=== PATIENT | male | born 1950 | race Caucasian/White ===

== ENCOUNTER 2016-11-27 01:57 | Emergency (ER) | payer MEDICARE ==
[~2016-11-27] VITALS: Ht 180.3 cm; Wt 90.0 kg
[~2016-11-27 01:57] MED LIST: DEXT15CA; TOPI200T8; TRAZ300T2; VENL100T19
[2016-11-27 02:00] VITALS: Ht 180.3 cm; Wt 90.0 kg
[2016-11-27] MEDS ORDERED: TRAZ300T15 PO (02:17)
[2016-11-27 02:45] VITALS: BP 128/89; PULSE 97
--- NOTE | 2016-11-27 04:07 | ERD ---
ER Documentation Chief Complaint Date/Time DATE: 11/27/16 TIME: 04:04 Chief Complaint Out of meds for 1 month HPI This 56-year-old male called an ambulance because he wanted refill on his trazodone it is not been taking for a month. States he takes 300 mg of trazodone nightly he has trouble sleeping without it. He denies any suicidal homicidal ideations. States that he would like to stay the night in the hospital but denies any new acute pain. He denies chest pain shortness of breath fevers, chills nausea vomiting. Denies any recent trauma. States that it is cold outside. ROS All systems reviewed and are negative except as per history of present illness. Medications Home Meds Active Scripts Trazodone Hcl* (Trazodone Hcl*) 300 Mg Tablet, 300 MG PO QHS, #10 TAB Prov:ARIA FRANZ DO 11/27/16 Reported Medications Trazodone Hcl* (Desyrel*) 300 Mg Tablet 04/07/10 D-Amphetamine Sulfate (Dexedrine) 15 Mg Capsule.sa 04/07/10 Venlafaxine Hcl* (Effexor*) 100 Mg Tablet 04/07/10 Topiramate (Topamax) 200 Mg Tablet 04/07/10 Allergies Allergies: Coded Allergies: Sulfa (Sulfonamides) (Verified Allergy, Mild, 04/07/10) Uncoded Allergies: [id number] (SULFA (SULFONAMIDE ANTIBIOTICS)) (Allergy, Mild, 04/07/10) PMhx/Soc History of Surgery: Yes (KIDNEY STONE 1990) Anesthesia Reaction: No Hx Neurological Disorder: No Hx Respiratory Disorders: No Hx Cardiac Disorders: No Hx Psychiatric Problems: Yes (DEPRESSION) Hx Miscellaneous Medical Probl: Yes (ADHD) Hx Alcohol Use: No Hx Substance Use: No Hx Tobacco Use: No Smoking Status: Never smoker Physical Exam Vitals Vital Signs Date Time Temp Pulse Resp B/P Pulse Ox O2 Delivery O2 Flow Rate FiO2 11/27/16 02:00 97.7 127 16 131/91 97 Physical Exam Const: [] No distress Head: Atraumatic Eyes: Normal Conjunctiva ENT: Normal External Ears, Nose and Mouth. Neck: Full range of motion..~ No meningismus. Resp: Clear to auscultation bilaterally Cardio: Regular mild tachycardia, no murmurs Abd: Soft, non tender, non distended. Normal bowel sounds Skin: No petechiae or rashes Back: No midline or flank tenderness Ext: No cyanosis, or edema Neur: Awake and alert and oriented 3, cranial nerves II through XII intact, no cerebellar deficits, normal gait Psych: Normal Mood and Affect Procedures/MDM Patient presents for medication refill. I agreed to fill his prescription for 10 days of trazodone. Patient initially stated he was stable in the hospital but does not have a medical reason for this. He was taking good by mouth in the emergency room. He has no other complaints at this time. I'm discharging him with primary care follow-up to obtain further refills. Given return precautions the emergency room if he feels any acute change or stress to feel extreme depression thoughts of harming himself. Departure Diagnosis: Primary Impression: Encounter for medication refill Condition: Stable Patient Instructions: Taking Medicine Safely Referrals: COMMUNITY CLINICS YOU HAVE RECEIVED A MEDICAL SCREENING EXAM AND THE RESULTS INDICATE THAT YOU DO NOT HAVE A CONDITION THAT REQUIRES URGENT TREATMENT IN THE EMERGENCY DEPARTMENT. FURTHER EVALUATION AND TREATMENT OF YOUR CONDITION CAN WAIT UNTIL YOU ARE SEEN IN YOUR DOCTORS OFFICE WITHIN THE NEXT 1-2 DAYS. IT IS YOUR RESPONSIBILITY TO MAKE AN APPOINTMENT FOR FOLOW-UP CARE. IF YOU HAVE A PRIMARY DOCTOR --you should call your primary doctor and schedule an appointment IF YOU DO NOT HAVE A PRIMARY DOCTOR YOU CAN CALL OUR PHYSICIAN REFERRAL HOTLINE AT IF YOU CAN NOT AFFORD TO SEE A PHYSICIAN YOU CAN CHOSE FROM THE FOLLOWING FORMERLY [facility], [facility] CLINICS [facility] [address] [facility]. [facility] [address] [facility]. [facility] [address] [facility]. [facility] [address] [facility]. [facility] [address] [facility]. [facility]. [address] [facility]. [facility] YOU HAVE RECEIVED A MEDICAL SCREENING EXAM AND THE RESULTS INDICATE THAT YOU DO NOT HAVE A CONDITION THAT REQUIRES URGENT TREATMENT IN THE EMERGENCY DEPARTMENT. FURTHER EVALUATION AND TREATMENT OF YOUR CONDITION CAN WAIT UNTIL YOU ARE SEEN IN YOUR DOCTORS OFFICE WITHIN THE NEXT 1-2 DAYS. IT IS YOUR RESPONSIBILITY TO MAKE AN APPOINTMENT FOR FOLOW-UP CARE. IF YOU HAVE A PRIMARY DOCTOR --you should call your primary doctor and schedule and appointment IF YOU DO NOT HAVE A PRIMARY DOCTOR YOU CAN CALL OUR PHYSICIAN REFERRAL HOTLINE AT . IF YOU CAN NOT AFFORD TO SEE A PHYSICIAN YOU CAN CHOSE FROM THE FOLLOWING [facility] INSTITUTIONS: [facility] [address] [place] [address] [facility] [address] [place] [address] [facility] + [facility] [address] [place] [address] Additional Instructions: Call your primary care doctor TOMORROW for an appointment during the next 1-2 days.See the doctor sooner or return here if your condition worsens before your appointment time. ARIA FRANZ DO Nov 27, 2016 04:07
== END 2016-11-27 06:52 | disposition home or self-care (01) ==
LOC: E/R 01:57
DX: Z76.0 Encounter for issue of repeat prescription (principal)
CPT/HCPCS: 99281

== ENCOUNTER 2016-11-30 12:33 | Emergency (ER) | payer MEDICARE, BC ==
[~2016-11-30] VITALS: Ht 167.6 cm; Wt 65.0 kg
[~2016-11-30 12:33] MED LIST changes: +TRAZ300T15 PO
[2016-11-30 12:50] VITALS: Ht 167.6 cm; Wt 65.0 kg
[2016-11-30 13:33] LABS: BASOPHILS % 0.6 % (0.0-2.0); EOSINOPHILS % 0.2 % (0.0-7.0); HEMATOCRIT 55.2 % (42.0-52.0); LYMPHOCYTES # 1.1 10^3/ul (0.8-2.9); LYMPHOCYTES % 16.5 % (15.0-51.0); MEAN CORPUSCULAR HEMOGLOBIN 33.1 pg (29.0-33.0); MEAN CORPUSCULAR HGB CONC 34.4 g/dl (32.0-37.0); MEAN CORPUSCULAR VOLUME 96.3 fl (82.0-101.0); MEAN PLATELET VOLUME 7.7 fl (7.4-10.4); MONOCYTE # 0.8 10^3/ul (0.3-0.9); MONOCYTES % 11.4 % (0.0-11.0); NEUTROPHIL # 4.7 10^3/ul (1.6-7.5); NEUTROPHILS % 71.3 % (39.0-77.0); PLATELET COUNT 193 10^3/UL (140-440); RED BLOOD COUNT 5.73 10^6/ul (4.70-6.10); RED CELL DISTRIBUTION WIDTH 13.9 % (11.5-14.5); UNCORRECTED WBC 6.7 10^3/ul (4.8-10.8); WHITE BLOOD COUNT 6.7 10^3/ul (4.8-10.8)
[2016-11-30 13:34] LABS: CONDITION 1
[2016-11-30 13:35] LABS: ALBUMIN 4.1 g/dl (3.3-4.9); CHLORIDE 93 mmol/L (97-110); SODIUM 139 mmol/L (135-144)
[2016-11-30 13:37] LABS: CREATININE 0.95 mg/dl (0.61-1.24)
[2016-11-30 13:38] LABS: ALANINE AMINOTRANSFERASE 23 IU/L (13-69); ALBUMIN/GLOBULIN RATIO 1.51; ALKALINE PHOSPHATASE 77 IU/L (42-121); ANION GAP 26 (8-16); ASPARTATE AMINO TRANSFERASE 25 IU/L (15-46); BLOOD UREA NITROGEN 21 mg/dl (7-20); CALCIUM 9.2 mg/dl (8.4-10.2); CARBON DIOXIDE 23 mmol/L (21-31); GLUCOSE 106 mg/dl (70-220); TOTAL PROTEIN 6.8 g/dl (6.1-8.1)
[2016-11-30 13:42] LABS: ACETAMINOPHEN < 10.0 ug/ml (10.0-30.0); ETHANOL < 10.0 mg/dl; SALICYLATE < 1.0 mg/dl (5.0-30.0)
[2016-11-30 13:43] LABS: POTASSIUM 2.8 mmol/L (3.5-5.1)
[2016-11-30] MEDS ORDERED: POTASSIUM CHLORIDE 40 MEQ in SOD CHLORIDE 0.45% 1,000 ML IV ONE (14:05)
[2016-11-30 15:08] LABS: ADD UMIC YES; URINE BILIRUBIN (Dip) 2+ (NEGATIVE); URINE BLOOD (Dip) 3+ (NEGATIVE); URINE COLOR DK. YELLOW (YELLOW); URINE GLUCOSE (Dip) NEGATIVE (NEGATIVE); URINE KETONES (Dip) 3+ (NEGATIVE); URINE LEUKOCYTE ESTERASE (Dip) NEGATIVE (NEGATIVE); URINE NITRITE (Dip) NEGATIVE (NEGATIVE); URINE TOTAL PROTEIN (Dip) 1+ (NEGATIVE); URINE UROBILINOGEN (Dip) 2.0 E.U./dL (0.1-1.0)
[2016-11-30 15:19] LABS: ICTOTEST NEGATIVE (NEGATIVE)
[2016-11-30 15:20] LABS: MUCUS,URINE MODERATE
--- NOTE | 2016-11-30 15:22 | ERD ---
ER Documentation Chief Complaint Date/Time DATE: 11/30/16 TIME: 15:21 Chief Complaint BIB RA 39 F0R EVAL OF SI. PT PLANS ON HANGING HIMSELF WITH BELT. HX OF DEPR HPI 66-year-old male with a history of depression presenting with suicidal ideations. He has a plan to hang himself. He states he is severely sad. He used to be on Effexor and trazodone, but he ran out of his medication several weeks ago. He was here several days ago for a refill for his medication and was given 10 days of trazodone. He states he is not feeling better and does not want to live anymore. He denies any homicidal ideations. He denies taking any drugs or any other substances today. He denies any alcohol use. ROS All systems reviewed and are negative except as per history of present illness. Medications Home Meds Discontinued Reported Medications Trazodone Hcl* (Desyrel*) 300 Mg Tablet 04/07/10 D-Amphetamine Sulfate (Dexedrine) 15 Mg Capsule.sa 04/07/10 Venlafaxine Hcl* (Effexor*) 100 Mg Tablet 04/07/10 Topiramate (Topamax) 200 Mg Tablet 04/07/10 Discontinued Scripts Trazodone Hcl* (Trazodone Hcl*) 300 Mg Tablet, 300 MG PO QHS, #10 TAB Prov:ARIA FRANZ DO 11/27/16 Allergies Allergies: Coded Allergies: Sulfa (Sulfonamide Antibiotics) (Verified Allergy, Mild, 11/30/16) Uncoded Allergies: [id number] (SULFA (SULFONAMIDE ANTIBIOTICS)) (Allergy, Mild, 04/07/10) PMhx/Soc History of Surgery: Yes (KIDNEY STONE 1990) Anesthesia Reaction: No Hx Neurological Disorder: No Hx Respiratory Disorders: No Hx Cardiac Disorders: No Hx Psychiatric Problems: Yes (DEPRESSION) Hx Miscellaneous Medical Probl: Yes (ADHD) Hx Alcohol Use: No Hx Substance Use: No Hx Tobacco Use: No Smoking Status: Never smoker FmHx Family History: No diabetes Physical Exam Vitals Vital Signs Date Time Temp Pulse Resp B/P Pulse Ox O2 Delivery O2 Flow Rate FiO2 11/30/16 18:30 98.6 72 16 115/84 97 Room Air 11/30/16 16:30 98.6 95 16 138/90 Room Air 11/30/16 12:50 98.9 106 22 154/84 100 Physical Exam Const: Disheveled, unkempt, no distress, thin Head: Atraumatic Eyes: Normal Conjunctiva ENT: Normal External Ears, Nose and Mouth. Neck: Full range of motion. No meningismus. Resp: Clear to auscultation bilaterally Cardio: Regular rate and rhythm, no murmurs Abd: Soft, non tender, non distended. Normal bowel sounds Skin: No petechiae or rashes Back: No midline or flank tenderness Ext: No cyanosis, or edema Neur: Awake and alert, strength and sensations intact in all 4 extremities Psych: Appearance: Disheveled M/S: Alert and oriented Mood/Affect: Depressed, labile Speech: Normal Insight: Normal Hallucinations: None SI or HI: Positive for SI Result Diagram: 11/30/16 1315 11/30/16 2100 Results 24 hrs Laboratory Tests Test 11/30/16 13:15 11/30/16 14:35 11/30/16 21:00 Acetaminophen Level < 10.0ug/ml Alanine Aminotransferase (ALT/SGPT) 23IU/L Albumin 4.1g/dl Albumin/Globulin Ratio 1.51 Alkaline Phosphatase 77IU/L Anion Gap 26 22 Aspartate Amino Transf (AST/SGOT) 25IU/L Basophils # 0.010^3/ul Basophils % 0.6% Blood Urea Nitrogen 21mg/dl 18mg/dl Calcium Level 9.2mg/dl 8.4mg/dl Carbon Dioxide Level 23mmol/L 23mmol/L Chloride Level 93mmol/L 94mmol/L Creatinine 0.95mg/dl 0.70mg/dl Direct Bilirubin 0.00mg/dl Eosinophils # 0.010^3/ul Eosinophils % 0.2% Ethyl Alcohol Level < 10.0mg/dl Globulin 2.70g/dl Glucose Level 106mg/dl 99mg/dl Hematocrit 55.2% Hemoglobin 19.0g/dl Indirect Bilirubin 1.0mg/dl Lymphocytes # 1.110^3/ul Lymphocytes % 16.5% Mean Corpuscular Hemoglobin 33.1pg Mean Corpuscular Hemoglobin Concent 34.4g/dl Mean Corpuscular Volume 96.3fl Mean Platelet Volume 7.7fl Monocytes # 0.810^3/ul Monocytes % 11.4% Neutrophils # 4.710^3/ul Neutrophils % 71.3% Nucleated Red Blood Cells # 0.010^3/ul Nucleated Red Blood Cells % 0.0/100WBC Platelet Count 45094^3/UL Potassium Level 2.8mmol/L 3.5mmol/L Red Blood Count 5.7310^6/ul Red Cell Distribution Width 13.9% Salicylates Level < 1.0mg/dl Sodium Level 139mmol/L 135mmol/L Total Bilirubin 1.0mg/dl Total Protein 6.8g/dl White Blood Count 6.710^3/ul Urine Amphetamines Screen Negative Urine Barbiturates Negative Urine Benzodiazepines Screen Negative Urine Bilirubin 2+ Urine Cannabinoids Negative Urine Clarity CLEAR Urine Cocaine Screen Negative Urine Color DK. YELLOW Urine Glucose NEGATIVE% Urine Hemoglobin 3+ Urine Ictotest NEGATIVE Urine Ketones 3+ Urine Leukocyte Esterase NEGATIVE Urine Microscopic RBC 5-10/HPF Urine Microscopic WBC 0-2/HPF Urine Mucus MODERATE Urine Nitrite NEGATIVE Urine Opiates Screen Negative Urine Specific [place] 1.025 Urine Total Protein 1+ Urine Urobilinogen 2.0 E.U./dL Urine pH 6.0 Magnesium Level 2.1mg/dl Current Medications Medications (Trade) Dose Ordered Sig/Irene Route PRN Reason Start Time Stop Time Status Last Admin Dose Admin Potassium Chloride/Sodium Chloride (KCl/1/2 NS) 1,020 ml @ 250 mls/hr Q4H5M ONCE IV 11/30/16 14:05 11/30/16 18:09 DC 11/30/16 15:19 Potassium Chloride (Klor-Con 20) 20 meq ONCE STAT PO 11/30/16 16:44 11/30/16 16:46 DC 11/30/16 17:11 Trazodone HCl (Desyrel) 150 mg ONCE ONCE PO 11/30/16 19:30 11/30/16 19:31 DC 11/30/16 21:18 Procedures/MDM EKG: Rate/Rhythm: Normal Sinus Rhythm QRS, ST, T-waves: No changes consistent w/ acute ischemia, QTC prolonged at 516 Impression: No evidence of ischemia or arrhythmia Patient is presenting with suicidal ideation. I suspect he has not been eating well as he is hypokalemic and dehydrated. His serum alcohol, salicylate, and Tylenol levels were all within normal limits. His urine drug screen was normal. His EKG showed prolongation of the QT. The patient was placed on the monitor and started on IV and oral potassium replacement. He had originally called the police for his suicidal ideation. Police followed up in the ER and placed the patient on the 5150. The patient remained hemodynamically stable while here without any cardiac events. He was evaluated by the tele-psychiatry doctor, Dr. pedro, who recommended starting the patient on trazodone and agreed with inpatient psychiatric placement. The repeat BMP was done with normalization of the patient's potassium. At the end of my shift, the patient was awaiting placement to inpatient psychiatric facility. He is currently medically clear for transfer. Patient was signed out to Dr. Altamirano. Departure Diagnosis: Primary Impression: Hypokalemia Additional Impressions: Suicidal ideation Dehydration Depression Depression Type: unspecified Qualified Code: F32.9 - Depression, unspecified depression type Condition: Fair GALLO CASTRO MD Nov 30, 2016 15:22
[2016-11-30 15:57] LABS: BARBITURATES Negative (NEGATIVE); BENZODIAZEPINES Negative (NEGATIVE); CANNABINOIDS Negative (NEGATIVE); COCAINE Negative (NEGATIVE); OPIATES Negative (NEGATIVE)
[2016-11-30] MEDS ORDERED: POTASSIUM CHLORIDE (SR) 20 MEQ TAB PO STA (16:44)
--- NOTE | 2016-11-30 18:41 | PSY ---
Date/Time of Note Date/Time of Note DATE: 11/30/16 TIME: 18:35 Psychiatric Subjective Eval Consent Pt consented to telemedicine: Yes Subjective Evaluation Patient location: emergency Chief Complaint: BIB RA 39 F0R EVAL OF SI. PT PLANS ON HANGING HIMSELF WITH BELT. HX OF DEPR Reason for consult: SI History of present illness Patient is a 66 year old male with a long standing history of depression who went off of his medications one month ago. He usually take Effexor, Trazodone and Topamax. He cannot recall all of his doses. He started feeling more and more depressed with anhedonia, insomnia, profound guilt, problems with focus and concentration and recurrent suicidal thoughts. He reports he has a belt set up to hang himself at home. He wants to because he is depressed and has no family or friends. He reports he has one son but his "ex- won't let him talk to me." He denies hallucinations and delusions. He denies drug and alcohol use. He denies s/s of hypomania and sharda. Past psychiatric history Had one hospitalization about 30 years ago. Treatment has been outpatient. He ran out of his medications but it is not clear why he did not follow up with his prescriptions. He has never attempted suicide. Hospitalization: yes Family History Denies Medical history Problems Medical Problems: (1) Dehydration Status: Acute (2) Depression Status: Acute (3) Encounter for medication refill Status: Acute (4) Hypokalemia Status: Acute (5) Suicidal ideation Status: Acute Allergies: Coded Allergies: Sulfa (Sulfonamide Antibiotics) (Verified Allergy, Mild, 11/30/16) Uncoded Allergies: [id number] (SULFA (SULFONAMIDE ANTIBIOTICS)) (Allergy, Mild, 04/07/10) Substance Abuse Substance use: No known substance abuse Social History Marital status: Level of education: N/A DPA/Conservatorship: No Occupation/Jail: Retired Psychiatric Objective Eval Physical Examination: Physical Examination: Applicable Sleep: Insomnia Appetite: Decreased Energy: Decreased Interest: Decreased Mental Status Examination: Appearance: Disheveled Eye Contact: Fair Psychomotor Activity: Other (Lip smacking) Behavior: Cooperative Speech: Soft AFFECT: Libile Mood: Depressed Though Process: Perseverative Thought Content: Obsessions Suicidal: Yes Homicidal: No On 72 hour hold: Yes Orientation: x3 Cognition: Alert Insight: Impared Judgement: Impared Laboratory Results Laboratory Tests Test 11/30/16 13:15 11/30/16 14:35 Acetaminophen Level < 10.0ug/ml Alanine Aminotransferase (ALT/SGPT) 23IU/L Albumin 4.1g/dl Albumin/Globulin Ratio 1.51 Alkaline Phosphatase 77IU/L Anion Gap 26 Aspartate Amino Transf (AST/SGOT) 25IU/L Basophils # 0.010^3/ul Basophils % 0.6% Blood Urea Nitrogen 21mg/dl Calcium Level 9.2mg/dl Carbon Dioxide Level 23mmol/L Chloride Level 93mmol/L Creatinine 0.95mg/dl Direct Bilirubin 0.00mg/dl Eosinophils # 0.010^3/ul Eosinophils % 0.2% Ethyl Alcohol Level < 10.0mg/dl Globulin 2.70g/dl Glucose Level 106mg/dl Hematocrit 55.2% Hemoglobin 19.0g/dl Indirect Bilirubin 1.0mg/dl Lymphocytes # 1.110^3/ul Lymphocytes % 16.5% Mean Corpuscular Hemoglobin 33.1pg Mean Corpuscular Hemoglobin Concent 34.4g/dl Mean Corpuscular Volume 96.3fl Mean Platelet Volume 7.7fl Monocytes # 0.810^3/ul Monocytes % 11.4% Neutrophils # 4.710^3/ul Neutrophils % 71.3% Nucleated Red Blood Cells # 0.010^3/ul Nucleated Red Blood Cells % 0.0/100WBC Platelet Count 70503^3/UL Potassium Level 2.8mmol/L Red Blood Count 5.7310^6/ul Red Cell Distribution Width 13.9% Salicylates Level < 1.0mg/dl Sodium Level 139mmol/L Total Bilirubin 1.0mg/dl Total Protein 6.8g/dl White Blood Count 6.710^3/ul Urine Amphetamines Screen Negative Urine Barbiturates Negative Urine Benzodiazepines Screen Negative Urine Bilirubin 2+ Urine Cannabinoids Negative Urine Clarity CLEAR Urine Cocaine Screen Negative Urine Color DK. YELLOW Urine Glucose NEGATIVE% Urine Hemoglobin 3+ Urine Ictotest NEGATIVE Urine Ketones 3+ Urine Leukocyte Esterase NEGATIVE Urine Microscopic RBC 5-10/HPF Urine Microscopic WBC 0-2/HPF Urine Mucus MODERATE Urine Nitrite NEGATIVE Urine Opiates Screen Negative Urine Specific [place] 1.025 Urine Total Protein 1+ Urine Urobilinogen 2.0 E.U./dL Urine pH 6.0 Assessment and Plan Assessment/Diagnosis [place] I: Major Depressive Disorder, Recurrent, Severe, Without Psychosis Recommendation/Plan Medication Management Per inpatient psychiatry. Consider restarting Trazodone while in ER and awaiting transfer to psychiatric facility. Psychotherapy Brief supportive therapy. Pt. Caregiver/Family Education N.A Follow-up/Disposition Transfer to inpatient psychiatry. They need to know that he has a set up for hanging himself at home already. May need case management. [id number] Recommendation: WAI Story Nov 30, 2016 18:41
[2016-11-30] MEDS ORDERED: traZODone 100 MG TAB PO ONE (19:30)
[2016-11-30 21:49] LABS: POTASSIUM 3.5 mmol/L (3.5-5.1)
[2016-11-30 21:51] LABS: CREATININE 0.7 mg/dl (0.61-1.24)
[2016-11-30 21:52] LABS: CALCIUM 8.4 mg/dl (8.4-10.2); MAGNESIUM 2.1 mg/dl (1.7-2.5)
[2016-11-30 23:00] VITALS: BP 126/84; PULSE 80; RESP 16; TEMP 98.6
== END 2016-11-30 23:15 ==
LOC: E/R 12:33
DX: E87.6 Hypokalemia (principal); E86.0 Dehydration; R45.851 Suicidal ideations
CPT/HCPCS: 36415; 80048; 80053; 80306; 80307; 81001; 83735; 85025; 93005; 96374; 99285; J3480; 81003